=== PATIENT | female | born 1995 | race Caucasian/White ===

== ENCOUNTER → 2017-01-31 | Outpatient (CLI) | payer OTHER ==
--- NOTE | 2017-01-31 16:04 | XR ---
EXAMINATION TYPE: XR knee complete LT DATE OF EXAM: 01/31/2017 3:29 PM COMPARISON: NONE HISTORY: Pain TECHNIQUE: Four views are submitted. FINDINGS: Joint spaces are preserved. Osseous structures are intact. No acute fracture seen. IMPRESSION: 1. No acute fracture or dislocation.
--- NOTE | 2017-01-31 16:05 | XR ---
EXAMINATION TYPE: XR thoraco lumbar junction DATE OF EXAM: 01/31/2017 3:29 PM COMPARISON: NONE HISTORY: Pain TECHNIQUE: Frontal and lateral views of the thoracolumbar junction submitted. FINDINGS: Pedicles intact. Vertebral body height and disc interspace maintained. No compression deformities. IMPRESSION: 1. No abnormality. If symptoms persist consider follow-up MRI.
== END | disposition home or self-care (01) ==
LOC: RADXRMAIN 15:03
PROVIDERS: ATTEND Pediatrics
DX: M25.562 Pain in left knee (principal); M54.9 Dorsalgia, unspecified
CPT/HCPCS: 72080

== ENCOUNTER → 2017-02-15 | Outpatient (CLI) | payer OTHER ==
--- NOTE | 2017-02-17 16:35 | MR ---
EXAMINATION TYPE: MR knee LT wo con DATE OF EXAM: 02/15/2017 7:22 PM COMPARISON: Radiograph 01/31/2017 HISTORY: 21-year-old female with left knee pain/lateral x 4-5 weeks TECHNIQUE: Multiplanar, multisequence imaging of the left knee is performed without IV contrast. FINDINGS: The ACL, PCL, MCL, and LCL complex are intact. There is either a prominent vascular pedicle or degenerative change within the posterior horn of the medial meniscus. Signal does not contact either articular surface. The lateral meniscus is intact. Overall tricompartmental articular cartilage volumes are maintained. Extensor mechanism is intact. Mild physiologic knee joint fluid. No Myers's cyst. Normal popliteal artery anatomy and muscle bulk. No suspicious bone marrow replacement. IMPRESSION: 1. Either a prominent vascular pedicle or degenerative signal in the posterior horn of the medial men iscus. No discrete meniscal tear. 2. No other specific abnormality seen.
== END | disposition home or self-care (01) ==
LOC: RADMRIMAIN 18:47
PROVIDERS: ATTEND Nurse Practitioner Family
DX: M25.562 Pain in left knee (principal)

== ENCOUNTER 2017-08-07 09:45 | Day surgery (SDC) | payer OTHER ==
[2017-08-02 15:07] VITALS: BMI 23.8
[~2017-08-07 09:45] MED LIST: HEPARIN SODIUM,PORCINE 5,000 UNIT/ML 1 ML VIAL SQ ONE; ONDANSETRON 4 MG/2 ML VIAL IVP ONE; ceFAZolin IN SWFI 2 GM/20 ML SYRINGE IVP ONE
[2017-08-07 11:14] LABS: Glucose,Whole Blood 83 mg/dL (75-99)
[2017-08-07] MEDS: DEXAMETHASONE SOD PHOSPHATE 10 MG/ML 1 ML VIAL IV ONE ×2 (11:21→11:22)
[2017-08-07] MEDS ORDERED: LIDOCAINE 1% 20 ML VIAL (10MG/ML) FOR IV START INTRADERMA ONE (11:21)
[2017-08-07] MEDS: LACTATED RINGERS 1,000 ML IV SCH ×3 (11:21→14:13)
[2017-08-07] MEDS ORDERED: CLINDAMYCIN 600 MG in DEXTROSE 5% IN WATER 50 ML IVPB STA ×2 (11:32)
[2017-08-07] MEDS ORDERED: NEOSTIGMINE 1 MG/ML 10 ML VIAL ONE (11:45)
[2017-08-07] MEDS ORDERED: SUCCINYLCHOLINE CHLORIDE 100 MG/5 ML SYR IV ONE (11:45)
[2017-08-07] MEDS ORDERED: fentaNYL (PF) 50 MCG/ML 2 ML AMP ONE (11:45)
[2017-08-07] MEDS ORDERED: MIDAZOLAM 2 MG/2 ML VIAL ONE (11:45)
[2017-08-07] MEDS ORDERED: PROPOFOL 10 MG/ML 20 ML VIAL IV ONE (11:45)
[2017-08-07] MEDS ORDERED: ROCURONIUM BROMIDE 10 MG/ML 10 ML VIAL IV ONE (11:45)
[2017-08-07] MEDS ORDERED: LIDOCAINE 1% INJ 10MG/ML (20 ML MDV) ONE (11:45)
[2017-08-07] MEDS ORDERED: GLYCOPYRROLATE 0.2 MG/ML 2 ML VIAL ONE (11:45)
[2017-08-07] MEDS ORDERED: BUPIVACAINE-EPI 0.5%-1:200,000 10 ML VIAL SQ ONE ×2 (11:56)
--- NOTE | 2017-08-07 12:51 | P.OP ---
Date of Procedure: 08/07/17 Preoperative Diagnosis: Umbilical hernia Postoperative Diagnosis: Same Procedure(s) Performed: Robotic assist lap umbilical hernia repair with mesh Implants: Ventralight ST Hernia Patch 6.4 cm circular Anesthesia: TARIKA Surgeon: Chela Pope Estimated Blood Loss (ml): 5 Pathology: none sent Condition: stable Disposition: PACU Indications for Procedure: 22 years old female presents with umbilical hernia. Informed consent obtained and patient elected to undergo robotic-assisted laparoscopic umbilical hernia repair with mesh possible open. Description of Procedure: The patient was brought to the operating room and placed in supine position. General anesthesia with endotracheal intubation was performed as per anesthesia team. The right arm was tucked against the body and a footboard was applied. Chlorhexidine was used to prep the skin followed by application of sterile drapes and Ioban dressing. A timeout was performed to verify correct patient and correct procedure. Patient was confirmed to receive perioperative IV antibiotics , bilateral SCDs and 5000 units of subcutaneous heparin for VTE prophylaxis. A 5 mm skin incision was made along the left midaxillary line and a Veress needle was inserted to establish the pneumoperitoneum to a pressure of 15 mm of Hg. Using a 5 mm 30 laparoscope the peritoneal cavity was entered using the Optiview technique. Additional 8 mm trocar was placed in the mid axillary line in the left mid abdomen and robotic 8 mm trocar in the left lower abdomen. The 5 mm trocar was upsized to 8 mm robotic trocar. The [place] robot was then docked. The 30 robotic camera was used. A robotic prograsp and monopolar scissors were inserted through 8 mm robotic trocars The hernia defect contained preperitoneal fat and omentum which were reduced using gentle traction and countertraction method. The falciform ligament was divided using monopolar scissors close to the anterior abdominal wall to create a landing zone for the mesh. A 6.[address] circular mesh was introduced to the abdominal cavity via the 8 mm trocar. The hernia defect was closed primarily with running sutures using O- V lock by taking 1 cm bite on the fascia on either side of the defect. A Praveen Daphney device was inserted through the middle of the hernia defect and the stay suture on the mesh was grasped to elevate the mesh against the anterior abdominal wall. The mesh was circumferentially sutured to the peritoneum of the anterior abdominal wall using 2-0 V lock without any folds or kinks. The robot was then undocked All trocar sites were examined. No evidence of bleeding. The pneumoperitoneum was evacuated and all the skin incisions were closed using 4-0 Monocryl followed by Dermabond skin glue. Telfa and Tegaderm dressings were applied. The sponge, instrument and needle count were correct x2. Abdominal binder was applied. The patient was extubated and taken to post anesthesia care unit in stable condition.
[2017-08-07 13:21] VITALS: TEMP 98.1
[2017-08-07 13:33] VITALS: RESP 16
[2017-08-07] MEDS: HYDROmorphone 0.5 MG/0.5 ML SYRINGE IVP PRN ×2 (13:38→13:50)
[2017-08-07] MEDS ORDERED: MEPERIDINE 50 MG/ML SYRINGE IVP ONE (14:11)
[2017-08-07] MEDS ORDERED: KETOROLAC 30 MG/ML 1 ML VIAL IVP ONE (14:37)
[2017-08-07] MEDS ORDERED: HYDROcodone/APAP 5-325MG 1 EACH TAB PO ONE (16:18)
[2017-08-07 16:21] VITALS: BP 114/74; PULSE 79
== END 2017-08-07 17:21 | disposition home or self-care (01) ==
LOC: OR 09:45
PROVIDERS: ATTEND Surgery
DX: K42.9 Umbilical hernia without obstruction or gangrene (principal); K21.9 Gastro-esophageal reflux disease without esophagitis; M19.90 Unspecified osteoarthritis, unspecified site; F17.210 Nicotine dependence, cigarettes, uncomplicated; Z88.0 Allergy status to penicillin; Z88.6 Allergy status to analgesic agent; Z79.3 Long term (current) use of hormonal contraceptives; Z79.899 Other long term (current) drug therapy
CPT/HCPCS: 49652; 81025; C1781; J2250; J1644; J1100; J2710; J2175; J2405; J2001; J3010; J1885; J0330; J2704; J1170

== ENCOUNTER → 2017-11-11 | Outpatient (CLI) | payer OTHER ==
--- NOTE | 2017-11-11 22:31 | MR ---
EXAMINATION TYPE: MR ankle LT wo con DATE OF EXAM: 11/11/2017 COMPARISON: NONE HISTORY: Left ankle pain for order. Pain, limited movement, and swelling since bruising injury 6 myke hs ago per patient. Standard multiplanar, multisequence MRI departmental protocol Multiplanar, multisequence images of the left ankle were acquired. FINDINGS: Distal Achilles tendon is intact. Plantar fascia is intact. Proteus brevis and longus tendons are intact. The flexor tendons along the posterior medial aspect of the ankle are intact. Extensor tendons anteriorly are intact. Anterior tibiofibular and anterior talofibular ligaments are intact. The ankle mortise symmetry is pr eserved. No suspicious soft tissue swelling is seen. Medial deltoid ligaments are intact. Normal sinus tarsi fat is present. Hindfoot articulations are maintained. No suspicious bone marrow e justo is present. There is small tibiotalar joint effusion posteriorly. IMPRESSION: No tendon or ligamentous tear identified. No significant finding is seen to account for patient's sym ptoms.
== END | disposition home or self-care (01) ==
LOC: RADMRIMAIN 09:55
PROVIDERS: ATTEND Nurse Practitioner Family
DX: M25.572 Pain in left ankle and joints of left foot (principal)

== ENCOUNTER → 2018-02-05 | Outpatient (CLI) | payer OTHER ==
--- NOTE | 2018-02-05 08:46 | US ---
EXAMINATION TYPE: US abdomen complete DATE OF EXAM: 02/05/2018 COMPARISON: NONE CLINICAL HISTORY: R10.9 abd pain. Nausea, lower abdominal pain, bloating for 3 weeks EXAM MEASUREMENTS: Liver Length: 15.3 cm Gallbladder Wall: 0.2 cm CBD: 0.3 cm Spleen: 11.4 cm Right Kidney: 10.2 x 3.5 x 4.5 cm Left Kidney: 10.9 x 5.9 x 4.7 cm Pancreas: portions obscured by overlying bowel, visualized portions appear wnl Liver: wnl Gallbladder: no evidence of stones Evidence for sonographic Lobo's sign: no CBD: wnl Spleen: wnl Right Kidney: no evidence of hydronephrosis or mass Left Kidney: no evidence of hydronephrosis or mass Upper IVC: wnl Abd Aorta: wnl The liver is homogenous. The intrahepatic portion of the IVC and proximal abdominal aorta are within normal limits. There is no evidence of cholelithiasis. Common bile duct is unremarkable. The visu alized portions of the pancreas are homogenous. The spleen is unremarkable. Kidneys are symmetric a nd free of hydronephrosis. No renal lesions are seen. IMPRESSION: Unremarkable abdominal ultrasound. No sonographic evidence of cholelithiasis or acute cho lecystitis.
== END | disposition home or self-care (01) ==
LOC: RADUSWWP 07:13
PROVIDERS: ATTEND Pediatrics
DX: R10.9 Unspecified abdominal pain (principal)
CPT/HCPCS: 76700